=== PATIENT | female | born 1995 | race Caucasian/White ===

== ENCOUNTER 2019-09-21 18:37 | Emergency (ER) | payer BC ==
[~2019-09-21] VITALS: Ht 167.6 cm; Wt 52.2 kg
[2019-09-21] MEDS ORDERED: KEFLEX500 M1 PO (19:31)
[2019-09-21] MEDS ORDERED: TYLENOL WITH CO1 TA1 PO (19:31)
[2019-09-21 20:09] VITALS: BP 116/63
== END 2019-09-21 20:09 | disposition home or self-care (01) ==
LOC: M.ERS 18:37
DX: S61.012A Laceration without foreign body of left thumb without damage to nail, initial encounter (principal); W26.8XXA Contact with other sharp object(s), not elsewhere classified, initial encounter; Y93.89 Activity, other specified; Y92.89 Other specified places as the place of occurrence of the external cause; Y99.8 Other external cause status